=== PATIENT | female | born 1985 | race American Indian/Alaskan Native ===

== ENCOUNTER 2018-01-09 21:41 | Emergency (ER) | payer MEDICAID ==
[2018-01-09 22:05] VITALS: BP 93/67
== END 2018-01-10 03:33 | disposition left against medical advice (07) ==
LOC: ED 21:41
DX: M79.1 Myalgia (principal); Z53.21 Procedure and treatment not carried out due to patient leaving prior to being seen by health care provider

== ENCOUNTER 2019-10-20 06:54 | Inpatient (IN) | payer BC, MEDICAID ==
[2019-10-20 08:01] LABS: Bacteria,Urine 1+ /HPF (Negative); Bilirubin,Urine NEG (Negative); Blood,Urine NEG (Negative); Color,Urine Straw (Yellow); Protein,Urine <15 mg/dL mg/dL (Negative); Urobilinogen,Urine < 2.0 mg/dL (<2.0)
[2019-10-20] MEDS: BUTALB/ACETAMINOPHEN/CAFFEINE TAB PO PRN ×2 (08:38→12:26)
[2019-10-20] MEDS ORDERED: TERBUTALINE 1 MG/1 ML INJ SUB-Q PRN (10:50)
[2019-10-20] MEDS ORDERED: fentaNYL 100 MCG/2 ML INJ IV PRN (10:50)
--- NOTE | 2019-10-20 10:54 | History and Physical Report ---
History of Present Illness Date of examination: 10/20/19 Date of admission: 10/20/2019 Chief complaint: Headache, contractions History of present illness: 34 year old presents to L&D with complaint of headache since awakening this morning. Patient states she got emotionally upset last night and noticed the headache after that. Patient denies visual disturbance, nausea or vomiting, abdominal pain, swelling, or vaginal bleeding. Patient reports contractions. She denies leaking of water. Patient reports active movement. Patient received care at [facility] OB-SECURITY SYSTEMS ADMINISTRATOR. records are not available but was able to access records on computer. significant for the following: anemia (supplemented with iron), obesity, rubella nonimmune, left multicystic dysplastic kidney, mild pyelectasis/left hydronephrosis, UTI with proteus (treated). labs are as follows: AB+, antibody screen negative, pap smear negative, rubella nonimmune, RPR nonreactive, hepatitis B surface antigen negative, HIV negative, HSV 2 negative, hemoglobin electrophoresis AA, gonorrhea negative, chlamydia negative, trichomonas negative, GBS negative, 1 hour sugar test 77, AFP tetra screen negative. Past medical history significant for obesity, migraine, history of delivery, and vitamin D deficiency. Past History Past Medical History: other (obesity, migraine, vitamin D deficiency, history of PTD) Past Surgical History: no surgical history SECURITY SYSTEMS ADMINISTRATOR History: denies: abnormal PAP smear, chlamydia, gonorrhea, hepatitis B, hepatitis C, herpes, HIV, syphilis, trichomonas Family/Genetic History: diabetes, heart disease, hypertension, other (arthritis, hypercholesterolemia) Social history: lives with family, full code. denies: smoking, alcohol abuse, prescription drug abuse, IV drug use - Obstetrical History Expected Date of Delivery: 10/29/19 Actual Gestation: 38 Week(s) 5 Day(s) : 4 Para: 3 Hx # Term Pregnancies: 2 Number of Pregnancies: 1 Spontaneous Abortions: 0 Induced : 0 Number of Living Children: 3 Medications and Allergies Allergies Allergy/AdvReac Type Severity Reaction Status Date / Time No Known Allergies Allergy Unverified 01/09/18 22:04 Active Meds: Active Medications Acetaminophen/Butalbital/Caffeine (Fioricet) 1 tab PO Q4H PRN PRN Reason: Headache Last Admin: 10/20/19 08:38 Dose: 1 tab Documented by: Review of Systems All systems: negative (headache, contractions) - Vital Signs Vital signs: Vital Signs Temp Pulse Resp BP Pulse Ox 98.3 F 114 H 16 119/82 97 10/20/19 07:40 10/20/19 07:40 10/20/19 07:40 10/20/19 07:40 10/20/19 07:40 Temp Pulse Resp BP Pulse Ox 98.3 F 112 H 16 119/82 97 10/20/19 07:40 10/20/19 09:46 10/20/19 07:40 10/20/19 07:40 10/20/19 09:46 - Physical Exam Abdomen: Positive: normal appearance, soft. Negative: distention, tenderness, guarding, rigidity Genitourinary (Female): Positive: normal external genitalia, normal perenium. Negative: perineal/vulvar lesions (no lesions seen on careful exam with bright light upon admission) Vagina: Positive: normal moisture Uterus: Positive: enlarged (S=D). Negative: tender Anus/Rectum: Positive: normal perianal skin Extremities: Positive: other (brisk reflexes bilaterally, + clonus). Negative: tenderness, edema - Obstetrical FHR: category 2 (Occasional nonrepetitive variable FHR deceleration; moderate va riability) Uterine Contraction Monitor Mode: External Cervical Dilatation: 5 Cervical Effacement Percentage: 70 station: -3 Uterine Contraction Pattern: Irregular Uterine Contraction Intensity: Mild Results Result Diagrams: 10/20/19 11:56 All other labs normal. Assessment and Plan A: at 38 weeks, 5 days gestation. Preeclampsia with severe features. Obesity. left multicystic dysplastic kidney. Labor. GBS negative. P: Admit. Serial BPs. Preeclamptic labs. Continuous EFM. Magesium Sulfate for seizure prevention. Hydralazine for elevated blood pressure. Pitocin augmentation of labor. Discussed with patient plan of care, risks and benefits of Pitocin augmentation of labor. Patient states she is in agreement with POC. Patient consented to Pitocin augmentation of labor. Consulted with Dr. Zeng re: patient and severe preeclampsia and interventions taken, including magnesium sulfate. No new orders received. Spoke with NICU re: multicystic dysplastic kidney.
[2019-10-20] MEDS ORDERED: LIDOCAINE (2%) 20 MG/1 ML VIAL 20 ML MDV INFILTRATI ONE (11:00)
[2019-10-20] MEDS ORDERED: OXYTOCIN 20 UNIT/1000ML DRIP 20 UNITS/1,000 ML BAG IV SCH (11:00)
[2019-10-20] MEDS ORDERED: OXYTOCIN DRIP 30 UNITS/500 ML BAG IV SCH (11:00)
[2019-10-20 12:14] LABS: Hematocrit 34.6 % (30.3-42.9); Hemoglobin 11.9 gm/dl (10.1-14.3); Mean Corpuscular HGB Conc 34 % (30-34); Mean Corpuscular Volume 93 fl (79-97); Platelet Count 149 K/mm3 (140-440); Red Blood Count 3.74 M/mm3 (3.65-5.03); Red Cell Distribution Width 13.9 % (13.2-15.2)
[2019-10-20] MEDS: LACTATED RINGERS 1,000 ML IV SCH ×2 (12:27→20:30)
[2019-10-20] MEDS ORDERED: MAGNESIUM SULFATE 4 GM/100 ML BAG IV ONE (13:48)
[2019-10-20] MEDS ORDERED: hydrALAZINE 20 MG/1 ML INJ IV PRN (13:48)
[2019-10-20] MEDS ORDERED: MAGNESIUM SULFATE 40GM/1000ML 40 GM/1,000 ML BAG IV SCH ×2 (14:00→21:30)
[2019-10-20] MEDS ORDERED: DEXMEDETOMIDINE 200 MCG/2 ML VIAL IV ONE (14:12)
[2019-10-20] MEDS ORDERED: NALOXONE 2 MG/2 ML INJ IV PRN (14:22)
[2019-10-20] MEDS ORDERED: ePHEDrine SULFATE 50 MG/1 ML INJ IV PRN (14:22)
--- NOTE | 2019-10-20 14:24 | Anesthesia Consultation ---
Anesthesia Consult and Med Hx Date of service: 10/20/19 - Airway Anesthetic Teeth Evaluation: Good ROM Head & Neck: Adequate Mental/Hyoid Distance: Adequate Mallampati Class: Class III Intubation Access Assessment: Probably Good - Pulmonary Exam CTA: Yes - Cardiac Exam Cardiac Exam: RRR - Pre-Operative Health Status ASA Pre-Surgery Classification: ASA3 Proposed Anesthetic Plan: Epidural - Pulmonary Hx Smoking: No Hx Asthma: No Hx Respiratory Symptoms: No SOB: No COPD: No Home Oxygen Therapy: No Hx Pneumonia: No Hx Sleep Apnea: No - Cardiovascular System Hx Hypertension: Yes Hx Coronary Artery Disease: No Hx Heart Attack/AMI: No Hx Angina: No Hx Percutaneous Transluminal Coronary Angioplasty (PTCA): No Hx Cardia Arrhythmia: No Hx Pacemaker: No Hx Internal Defibrillator: No Hx Valvular Heart Disease: No Hx Heart Murmur: No Hx Peripheral Vascular Disease: No - Central Nervous System Hx Neuromuscular Disorder: No Hx Seizures: No CVA: No Hx Back Pain: Yes Hx Psychiatric Problems: No - Gastrointestinal Hx Ulcer: No Hx Gastroesophageal Reflux Disease: Yes - Endocrine Hx Renal Disease: No Hx End Stage Renal Disease: No Hx Cirrhosis: No Hx Liver Disease: No Hx Insulin Dependent Diabetes: No Hx Non-Insulin Dependent Diabetes: No Hx Thyroid Disease: No Hx Hypothyroidism: No Hx Hyperthyroidism: No - Hematic Hx Anemia: Yes Hx Sickle Cell Disease: No - Other Systems Hx Alcohol Use: No Hx Substance Use: No Hx Cancer: No Hx Obesity: Yes
[2019-10-20] MEDS: ePHEDrine SULFATE 50 MG/1 ML INJ IV PRN ×3 (14:57→15:04)
[2019-10-20] MEDS ORDERED: fentaNYL-BUPIV 2 MCG/ML-0.125% 200 MCG/100 ML BAG EPIDURAL SCH (15:00)
[2019-10-20 15:14] LABS: Alanine Aminotransferase 12 units/L (7-56); Albumin 3.8 g/dL (3.9-5); BUN/Creatinine Ratio 14; Blood Urea Nitrogen 10 mg/dL (7-17); Calcium 9.2 mg/dL (8.4-10.2); Hemolysis Index 8; Uric Acid 7.1 mg/dL (3.5-7.6)
--- NOTE | 2019-10-20 15:31 | Progress Note ---
Labor Epidural - Labor Epidural Start Time: 14:31 Stop Time: 14:46 Performed by:: KRISTEN JUAN Procedure: Labor Epidural Patient is requesting a laboring epidural for laboring pain. Patient IDed, H&P reviewed, all questions and concerns were answered, and consent was signed. Timeout was performed at bedside. Patient in sitting position. Sterile prep and drape was performed. [3] ml of 1% lidocaine skin wheal at L[3]- L [4]. 18-gauge Touhy epidural needle was advanced to loss of resistance with air technique 8cm. Negative CSF negative blood. Epidural catheter advanced to [12] centimeters. [negative] Aspiration [negative] test dose. Sterile dressing applied. Patient tolerated procedure.
--- NOTE | 2019-10-20 16:48 | Event Note ---
Date: 10/20/19 Patient received an epidural and had hypotension following epidural. Patient has received several doses of ephedrine and an IV fluid bolus. MUSIC VIDEO DIRECTOR has assessed the patient and is in room again to assess the patient. RN has been notified to call director of golf. Patient reports feeling sleepy and very relaxed. Patient talking and answering questions appropriately. No maternal tachycardia noted. FHR 130 with moderate variability and intermittent variable and late FHR decelerations. Patient has oxygen per face mask at 10 LPM. SVE unchanged. Contractions are every 3-6 minutes, moderate to palpation. Uterus palpates soft between contractions. Called Dr. Zeng at 16:40 and informed him of patient's vital signs and interventions taken and LOC change. Asked Dr. Zeng to come evaluate patient. Pitocin and magnesium sulfate have been turned off. Stat labs and US have been ordered. Stat mag level ordered.
--- NOTE | 2019-10-20 17:37 | Event Note ---
Date: 10/20/19 Dr. Zeng now in house. Dr. Zeng requests that patient have AROM to augment labor. Discussed with patient and she agrees to AROM. AROM with FSE. Cervix 5.5/70/-2.
--- NOTE | 2019-10-20 18:31 | Progress Note ---
Subjective Date of service: 10/20/19 Interval history: Called to see patient for hyoptension and change in LOC. On exam patient was laying on her Right side, A&Ox3, B/P 81/45, HR 97, SPO2 96%. Ordered Epidural drip turned off. Dermatome level T11. She denies ringing in the ears, metalliac taste, lightheadedness, dizziness, visual and auditory disturbances or drowsiness. Epidural site was intact. While in the room B/P's fluctuated from 49/26-116/72 however her LOC was unchanged. She was treated with IV fluid bolus and continues monitoring of B/P'S and pain assessments. Will restart Epidural drip once B/P is stable. Objective - Constitutional Vitals: Vital Signs - 12hr 10/20/19 10/20/19 10/20/19 07:40 07:45 07:46 Temperature 98.3 F Pulse Rate 114 H 112 H 109 H Respiratory 16 Rate Blood Pressure 119/82 O2 Sat by Pulse 97 94 94 Oximetry 10/20/19 10/20/19 10/20/19 07:50 07:55 07:56 Temperature Pulse Rate 116 H 108 H 106 H Respiratory Rate Blood Pressure O2 Sat by Pulse 97 96 92 Oximetry 10/20/19 10/20/19 10/20/19 08:00 08:02 08:05 Temperature Pulse Rate 112 H 100 H 108 H Respiratory Rate Blood Pressure O2 Sat by Pulse 90 91 97 Oximetry 10/20/19 10/20/19 10/20/19 08:08 08:10 08:14 Temperature Pulse Rate 110 H 107 H 109 H Respiratory Rate Blood Pressure O2 Sat by Pulse 93 95 94 Oximetry 10/20/19 10/20/19 10/20/19 08:15 08:20 08:21 Temperature Pulse Rate 106 H 105 H 103 H Respiratory Rate Blood Pressure O2 Sat by Pulse 94 96 93 Oximetry 10/20/19 10/20/19 10/20/19 08:25 08:28 08:37 Temperature Pulse Rate 114 H 114 H 114 H Respiratory Rate Blood Pressure O2 Sat by Pulse 97 92 95 Oximetry 10/20/19 10/20/19 10/20/19 08:40 08:42 08:45 Temperature Pulse Rate 106 H 104 H 102 H Respiratory Rate Blood Pressure O2 Sat by Pulse 91 95 92 Oximetry 10/20/19 10/20/19 10/20/19 08:47 08:52 08:56 Temperature Pulse Rate 95 H 98 H 107 H Respiratory Rate Blood Pressure O2 Sat by Pulse 93 96 93 Oximetry 10/20/19 10/20/19 10/20/19 08:57 09:01 09:02 Temperature Pulse Rate 95 H 98 H 102 H Respiratory Rate Blood Pressure O2 Sat by Pulse 97 93 95 Oximetry 10/20/19 10/20/19 10/20/19 09:07 09:12 09:17 Temperature Pulse Rate 100 H 83 107 H Respiratory Rate Blood Pressure O2 Sat by Pulse 94 97 96 Oximetry 10/20/19 10/20/19 10/20/19 09:18 09:22 09:36 Temperature Pulse Rate 103 H 118 H 68 Respiratory Rate Blood Pressure O2 Sat by Pulse 94 97 93 Oximetry 10/20/19 10/20/19 10/20/19 09:41 09:46 12:51 Temperature Pulse Rate 117 H 112 H 123 H Respiratory Rate Blood Pressure 174/112 O2 Sat by Pulse 99 97 Oximetry 10/20/19 10/20/19 10/20/19 13:00 13:58 14:09 Temperature Pulse Rate 113 H 129 H 107 H Respiratory Rate Blood Pressure 137/92 196/114 O2 Sat by Pulse 97 Oximetry 10/20/19 10/20/19 10/20/19 14:14 14:16 14:19 Temperature Pulse Rate 119 H 110 H 111 H Respiratory Rate Blood Pressure 115/72 O2 Sat by Pulse 97 94 97 Oximetry 10/20/19 10/20/19 10/20/19 14:20 14:25 14:30 Temperature 98.1 F Pulse Rate 115 H 119 H Respiratory Rate Blood Pressure 128/68 O2 Sat by Pulse 96 99 Oximetry 10/20/19 10/20/19 10/20/19 14:33 14:35 14:37 Temperature Pulse Rate 127 H 122 H 105 H Respiratory Rate Blood Pressure 103/70 105/71 96/68 O2 Sat by Pulse 100 Oximetry 10/20/19 10/20/19 10/20/19 14:39 14:40 14:41 Temperature Pulse Rate 127 H 115 H 115 H Respiratory Rate Blood Pressure 122/77 115/60 O2 Sat by Pulse 84 Oximetry 10/20/19 10/20/19 10/20/19 14:43 14:45 14:47 Temperature Pulse Rate 120 H 91 H 115 H Respiratory Rate Blood Pressure 103/58 95/56 78/44 O2 Sat by Pulse 98 Oximetry 10/20/19 10/20/19 10/20/19 14:49 14:50 14:51 Temperature Pulse Rate 111 H 113 H 113 H Respiratory Rate Blood Pressure 100/59 89/51 O2 Sat by Pulse 99 Oximetry 10/20/19 10/20/19 10/20/19 14:53 14:55 14:56 Temperature Pulse Rate 151 H 98 H 99 H Respiratory Rate Blood Pressure 102/58 73/40 O2 Sat by Pulse 98 93 Oximetry 10/20/19 10/20/19 10/20/19 14:57 14:59 15:00 Temperature Pulse Rate 99 H 96 H 94 H Respiratory Rate Blood Pressure 79/43 73/41 O2 Sat by Pulse 97 Oximetry 10/20/19 10/20/19 10/20/19 15:01 15:02 15:03 Temperature Pulse Rate 95 H 94 H 94 H Respiratory Rate Blood Pressure 61/39 62/36 O2 Sat by Pulse 93 Oximetry 10/20/19 10/20/19 10/20/19 15:05 15:06 15:07 Temperature Pulse Rate 97 H 96 H 91 H Respiratory Rate Blood Pressure 64/34 65/39 71/37 O2 Sat by Pulse 100 Oximetry 10/20/19 10/20/19 10/20/19 15:09 15:10 15:11 Temperature Pulse Rate 88 94 H 95 H Respiratory Rate Blood Pressure 65/35 68/39 O2 Sat by Pulse 99 Oximetry 10/20/19 10/20/19 10/20/19 15:13 15:15 15:17 Temperature Pulse Rate 92 H 99 H 100 H Respiratory Rate Blood Pressure 67/39 63/36 68/39 O2 Sat by Pulse 99 Oximetry 10/20/19 10/20/19 10/20/19 15:19 15:20 15:21 Temperature Pulse Rate 103 H 99 H 97 H Respiratory Rate Blood Pressure 69/40 73/41 O2 Sat by Pulse 99 Oximetry 10/20/19 10/20/19 10/20/19 15:23 15:25 15:27 Temperature Pulse Rate 95 H 95 H 93 H Respiratory Rate Blood Pressure 77/42 78/42 64/45 O2 Sat by Pulse 99 Oximetry 10/20/19 10/20/1910/19/20 15:29 15:30 15:31 Temperature Pulse Rate 95 H 91 H 89 Respiratory Rate Blood Pressure 84/49 68/36 O2 Sat by Pulse 99 Oximetry 10/20/19 10/20/19 10/20/19 15:33 15:35 15:37 Temperature Pulse Rate 93 H 89 92 H Respiratory Rate Blood Pressure 82/48 72/40 87/49 O2 Sat by Pulse 99 Oximetry 10/20/19 10/20/19 10/20/19 15:39 15:40 15:41 Temperature Pulse Rate 90 90 90 Respiratory Rate Blood Pressure 65/37 60/34 O2 Sat by Pulse 99 Oximetry 10/20/19 10/20/19 10/20/19 15:43 15:45 15:50 Temperature Pulse Rate 91 H 89 89 Respiratory Rate Blood Pressure 89/51 87/53 O2 Sat by Pulse 99 99 Oximetry 10/20/19 10/20/19 10/20/19 15:51 15:55 16:00 Temperature Pulse Rate 88 89 89 Respiratory Rate Blood Pressure 80/42 83/49 O2 Sat by Pulse 100 99 Oximetry 10/20/19 10/20/19 10/20/19 16:02 16:05 16:06 Temperature Pulse Rate 92 H 87 88 Respiratory Rate Blood Pressure 92/49 80/42 O2 Sat by Pulse 99 Oximetry 10/20/19 10/20/19 10/20/19 16:10 16:12 16:14 Temperature Pulse Rate 87 92 H 88 Respiratory Rate Blood Pressure 80/43 78/41 O2 Sat by Pulse 96 93 Oximetry 10/20/19 10/20/19 10/20/19 16:15 16:16 16:19 Temperature Pulse Rate 86 85 83 Respiratory Rate Blood Pressure 68/34 64/26 O2 Sat by Pulse 90 94 Oximetry 10/20/19 10/20/19 10/20/19 16:20 16:21 16:25 Temperature Pulse Rate 86 84 82 Respiratory Rate Blood Pressure 81/42 O2 Sat by Pulse 92 93 Oximetry 10/20/19 10/20/19 10/20/19 16:26 16:30 16:31 Temperature Pulse Rate 81 78 81 Respiratory Rate Blood Pressure 67/34 73/39 O2 Sat by Pulse 94 Oximetry 10/20/19 10/20/19 10/20/19 16:35 16:38 16:40 Temperature Pulse Rate 85 82 80 Respiratory Rate Blood Pressure 70/35 O2 Sat by Pulse 94 90 Oximetry 10/20/19 10/20/19 10/20/19 16:41 16:45 16:47 Temperature Pulse Rate 80 91 H 87 Respiratory Rate Blood Pressure 60/27 68/35 O2 Sat by Pulse 94 Oximetry 10/20/19 10/20/19 10/20/19 16:50 16:51 16:53 Temperature Pulse Rate 83 84 86 Respiratory Rate Blood Pressure 49/26 81/45 O2 Sat by Pulse 95 92 Oximetry 10/20/19 10/20/19 10/20/19 16:55 16:57 17:00 Temperature Pulse Rate 95 H 97 H 96 H Respiratory Rate Blood Pressure 98/57 O2 Sat by Pulse 95 96 Oximetry 10/20/19 10/20/19 10/20/19 17:01 17:05 17:06 Temperature Pulse Rate 96 H 88 89 Respiratory Rate Blood Pressure 89/53 O2 Sat by Pulse 96 94 Oximetry 10/20/19 10/20/19 10/20/19 17:08 17:10 17:11 Temperature Pulse Rate 90 90 90 Respiratory Rate Blood Pressure 73/38 56/26 O2 Sat by Pulse 95 Oximetry 10/20/19 10/20/19 10/20/19 17:12 17:15 17:16 Temperature Pulse Rate 91 H 98 H 97 H Respiratory Rate Blood Pressure 95/52 O2 Sat by Pulse 94 96 Oximetry 10/20/19 10/20/19 10/20/19 17:17 17:20 17:26 Temperature Pulse Rate 91 H 90 89 Respiratory Rate Blood Pressure 87/48 83/47 82/47 O2 Sat by Pulse 96 96 Oximetry 10/20/19 10/20/19 10/20/19 17:30 17:31 17:36 Temperature Pulse Rate 88 93 H 99 H Respiratory Rate Blood Pressure 65/35 116/71 O2 Sat by Pulse 94 97 99 Oximetry 10/20/19 10/20/19 10/20/19 17:41 17:46 17:48 Temperature Pulse Rate 94 H 98 H 92 H Respiratory Rate Blood Pressure 105/54 111/57 O2 Sat by Pulse 100 98 Oximetry - Labs CBC & Chem 7: 10/20/19 11:56 10/20/19 14:53 Labs: Abnormal lab results 10/20/19 Range/Units 14:53 Sodium 135 L (137-145) mmol/L Chloride 96.4 L (98-107) mmol/L Alkaline Phosphatase 143 H (35-129) units/L Lactate Dehydrogenase 202 H (91-180) units/L Albumin 3.8 L (3.9-5) g/dL
--- NOTE | 2019-10-20 19:48 | Ultrasound Report ---
ULTRASOUND OBSTETRIC INDICATION / CLINICAL INFORMATION: Check placenta. Clinical Gestational Age (GA): 38 weeks 5 days TECHNIQUE: Transabdominal. COMPARISON: None available. FINDINGS: There is a single intrauterine . Heart rate 130 bpm. DAVID 11.6 cm. Placenta is unremarkable s onographically, without evidence of placental separation. Signer Name: Jason Jameson MD Signed: 10/20/2019 7:44 PM Workstation Name: [id number]
--- NOTE | 2019-10-20 21:00 | Event Note ---
Date: 10/20/19 Restarted magnesium sulfate.
--- NOTE | 2019-10-20 22:40 | Event Note ---
Date: 10/20/19 Patient reached complete cervical dilation at 21:05. Patient pushed for approximately 38 minutes with little descent. Vertex at 0 to +1 station. Pitocin turned off at 21:35. Patient stopped pushing to labor down at 21:43. Informed Dr. Zeng at 21:49 that there had been little descent and patient was very numb from epidural and we were laboring down. While resting/laboring down, several deep variable FHR decelerations noted. Patient positioned in left lateral, then right lateral position. Oxygen applied per face mask at 10 LPM. At 22:[address] Zneg and asked him to come to patient's labor room to expedite delivery due to deep variable FHR decelerations.
[2019-10-21] MEDS ORDERED: ONDANSETRON 4 MG/2 ML INJ IV PRN (00:07)
[2019-10-21] MEDS ORDERED: LANOLIN/ZINC/DIMETHICONE (LANSINOH) 7 GM TP PRN (00:07)
[2019-10-21] MEDS ORDERED: WITCH HAZEL/ GLYCERIN PAD TP PRN (00:07)
[2019-10-21] MEDS ORDERED: MAGNESIUM HYDROXIDE (MOM) ORAL LIQD UDC PO PRN (00:07)
--- NOTE | 2019-10-21 00:18 | Procedure Note ---
OB Delivery Note - Delivery Date of Delivery: 10/20/19 Surgeon: JOANN HAILE Estimated blood loss: 200cc - Vaginal Delivery presentation: vertex Delivery position: OA Delivery induction: none Delivery augmentation: rupture of membranes, pitocin Delivery monitor: external FHT, external uterine Route of delivery: Delivery placenta: spontaneous Delivery cord: 3 umbilical vessels Episiotomy: none Delivery laceration: none Anesthesia: epidural Delivery comments: Spontaneous vaginal delivery at 23:44 of liveborn male infant weighing 2.549 kg over intact perineum with agpars of 8/9. Double nuchal cord manually reduced. Baby placed skin to skin with mom immediately after . Spontaneous cry and respirations. Baby bulb suctioned and dried with warm towels. 3 vessel cord double clamped and cut. Baby taken to radiant warmer for further suctioning. Spontaneous delivery of intact placenta and membranes by wheeler mechanism. EBL 200 cc. Pitocin to IV fluids after delivery of placenta. Fundus firm and midline. No lacerations noted. Vaginal sweep negative. Sponge count correct. Mother and baby stable in birthing room.
[2019-10-21] MEDS: HYDROcodone/ACETAMINOPHEN 5-325 MG TAB PO PRN ×3 (01:26→18:02)
--- NOTE | 2019-10-21 03:53 | Post Anesthesia Evaluation ---
- Post Anesthesia Evaluation Patient Participated: Yes Airway Patent: Yes Stable Respiratory Function: Yes Nausea/Vomiting: No Temp > 96.8F: Yes Pain Manageable: Yes Adequeate Hydration: Yes Anesthesia Complications: No Block Receding Appropriately: Yes Patient on Ventilator: No
[2019-10-21 06:00] LABS: Basophils % (Auto) 0.4 % (0.0-1.8); Eosinophils # (Auto) 0.1 K/mm3 (0.0-0.4); Eosinophils % (Auto) 0.5 % (0.0-4.3); Hematocrit 34.6 % (30.3-42.9); Hemoglobin 11.6 gm/dl (10.1-14.3); Lymphocytes % (Auto) 7.9 % (13.4-35.0); Mean Corpuscular HGB Conc 34 % (30-34); Mean Corpuscular Volume 94 fl (79-97); Monocytes # (Auto) 0.7 K/mm3 (0.0-0.8); Monocytes % (Auto) 5.8 % (0.0-7.3); Platelet Count 151 K/mm3 (140-440)
[2019-10-21] MEDS: IBUPROFEN 600 MG TAB PO PRN ×2 (06:05→21:39)
--- NOTE | 2019-10-21 11:47 | Progress Note ---
Assessment and Plan - Patient Problems (1) Status post normal vaginal delivery Current Visit: Yes Status: Acute Plan to address problem: PPD 1 - on magnesium sulfate therapy for pre-eclampsia Continue routine orders Anticipate discharge in 24 hours (2) Single live Current Visit: Yes Status: Acute (3) Pre-eclampsia Current Visit: Yes Status: Acute Qualifiers: Trimester: third trimester Qualified Code(s): O14.93 - Unspecified pre-eclampsia, third trimester Plan to address problem: Asymptomatic BPs stable - no antihypertensive at this time Continue magnesium sulfate therapy per protocol Discontinue magnesium sulfate after 24 hours and transfer pt to Subjective - Subjective Date of service: 10/21/19 Principal diagnosis: PPD #1, s/p Interval history: see [employer] - H&P, Event Notes and OB Delivery Procedure Note Patient reports: appetite normal, pain well controlled, other (osborne catheter in place. Denies headache, visual disturbances or RUQ pain) : doing well Objective - Vital Signs Latest vital signs: Vital Signs Temp Pulse Resp BP Pulse Ox 10/21/19 11:40 102 H 96 10/21/19 11:35 104 H 97 10/21/19 11:32 103 H 93 10/21/19 11:30 106 H 97 10/21/19 11:25 106 H 97 10/21/19 11:20 105 H 97 10/21/19 11:15 104 H 116/55 97 10/21/19 11:10 103 H 97 10/21/19 11:05 107 H 97 10/21/19 11:00 105 H 98 10/21/19 10:55 105 H 96 10/21/19 10:52 103 H 94 10/21/19 10:50 82 96 10/21/19 10:45 103 H 97 10/21/19 10:40 102 H 97 10/21/19 10:37 104 H 94 10/21/19 10:35 101 H 96 10/21/19 10:30 106 H 97 10/21/19 10:25 98 H 98 10/21/19 10:20 101 H 97 10/21/19 10:15 105 H 119/75 98 10/21/19 10:10 109 H 97 10/21/19 10:05 106 H 96 10/21/19 10:00 105 H 97 10/21/19 09:55 109 H 97 05/25/20 09:50 104 H 95 05/25/20 09:45 108 H 96 05/25/20 09:41 108 H 94 05/25/20 09:40 111 H 95 05/25/20 09:36 110 H 94 05/25/20 09:35 107 H 95 05/25/20 09:30 105 H 83 L 0520 09:29 90 0520 09:24 106 H 86 0520 09:19 109 H 85 0520 09:18 25 L 0520 09:15 114 H 118/74 05/25/20 09:14 113 H 84 0520 09:13 58 L 05 09:08 114 H 90 05 09:07 113 H 95 05 09:03 110 H 94 05 09:02 114 H 95 05/25/20 08:57 108 H 96 0520 08:53 111 H 94 052520 08:52 101 H 96 0520 08:48 106 H 94 0525/20 08:47 103 H 95 05/25/20 08:42 105 H 95 05/25/20 08:40 101 H 94 05/25/20 08:37 100 H 95 05/25/20 08:32 103 H 96 05/25/20 08:27 103 H 98 05/25/20 08:22 112 H 98 05/25/20 08:17 99 H 99 05/25/20 08:15 106 H 115/58 05/25/20 08:12 102 H 98 05/25/20 08:07 102 H 98 05/25/20 08:02 106 H 97 05/25/20 07:57 102 H 99 05/25/20 07:52 106 H 98 05/25/20 07:47 97 H 100 05/25/20 07:42 114 H 98 05/25/20 07:37 105 H 99 05/25/20 07:32 98 H 99 05/25/20 07:28 109 H 91 05/25/20 07:27 85 100 05/25/20 07:22 105 H 100 05/25/20 07:17 105 H 99 05/25/20 07:15 106 H 121/81 05/25/20 07:12 108 H 99 05/25/20 07:07 104 H 98 05/25/20 07:02 111 H 97 05/25/20 06:57 118 H 100 0520 06:52 104 H 97 05/20 06:47 102 H 98 0525/20 06:42 106 H 98 0525/20 06:37 100 H 98 0525/20 06:32 103 H 99 05/20 06:27 104 H 98 0520 06:22 102 H 97 0520 06:17 102 H 97 0520 06:15 102 H 109/74 05/25/20 06:12 96 H 99 05 06:07 108 H 96 05 06:03 104 H 94 05 06:02 102 H 95 0520 05:57 107 H 96 05/20 05:55 111 H 94 05/20 05:52 107 H 93 0520 05:49 107 H 94 0520 05:47 105 H 96 0525/20 05:42 111 H 96 05/20 05:37 106 H 95 05/25/20 05:36 109 H 94 05/25/20 05:32 104 H 97 05/20 05:27 102 H 94 05/25/20 05:22 100 H 96 05/20 05:20 110 H 94 05/25/20 05:17 96 H 96 05/25/20 05:16 97 H 93/57 0525/20 05:15 99 H 83/46 05/25/20 05:12 98 H 98 05/20 05:07 99 H 97 0525/20 05:02 98 H 97 05/25/20 04:57 101 H 96 05/25/20 04:52 106 H 96 05/25/20 04:47 110 H 97 05/25/20 04:42 107 H 97 05/25/20 04:37 107 H 98 05/25/20 04:32 107 H 94 05/25/20 04:29 114 H 80 L 05/25/20 04:27 114 H 96 05/25/20 04:23 115 H 91 05/25/20 04:22 112 H 96 05/25/20 04:17 112 H 95 05/25/20 04:15 112 H 114/66 05/25/20 04:12 105 H 94 05/25/20 04:11 109 H 94 05/25/20 04:07 105 H 94 05/25/20 04:04 109 H 94 05/25/20 04:02 104 H 95 05/25/20 03:58 106 H 94 05/25/20 03:57 105 H 94 05/25/20 03:52 95 H 94 05/25/20 03:51 105 H 94 05/25/20 03:47 109 H 95 05/25/20 03:46 107 H 94 05/25/20 03:42 110 H 95 05/25/20 03:37 109 H 96 05/25/20 03:36 106 H 94 05/25/20 03:32 109 H 93 05/25/20 03:29 112 H 94 05/25/20 03:27 108 H 93 05/25/20 03:22 110 H 93 05/25/20 03:19 109 H 94 05/25/20 03:17 113 H 91 05/25/20 03:15 105 H 113/68 05/25/20 03:12 108 H 95 05/25/20 03:11 111 H 94 05/25/20 03:07 107 H 95 05/25/20 03:05 110 H 94 05/25/20 03:02 109 H 93 05/25/20 02:59 108 H 94 05/25/20 02:57 108 H 94 05/25/20 02:53 107 H 93 05/25/20 02:52 109 H 93 05/25/20 02:47 104 H 93 05/25/20 02:42 108 H 95 05/25/20 02:39 109 H 94 05/25/20 02:37 109 H 95 05/25/20 02:32 107 H 95 05/25/20 02:29 99 H 93 05/25/20 02:27 111 H 96 05/25/20 02:24 103 H 94 05/25/20 02:22 106 H 94 05/25/20 02:17 108 H 95 05/25/20 02:15 113 H 90/58 05/25/20 02:12 106 H 95 05/25/20 02:08 108 H 93 05/25/20 02:07 111 H 95 05 02:02 111 H 97 05 01:57 110 H 97 05 01:52 114 H 97 05 01:47 113 H 98 05 01:42 113 H 99 05 01:37 117 H 99 05 01:32 112 H 99 05 01:27 112 H 100 05 01:22 113 H 98 10/21/19 01:17 114 H 98 05 01:12 114 H 100 05 01:11 113 H 108/66 05 01:07 101 H 98 10/21/19 01:02 104 H 98 10/21/19 01:00 98.6 F 20 10/21/19 00:57 111 H 97 10/21/19 00:56 109 H 119/66 05 00:54 116 H 90 10/21/19 00:52 108 H 98 10/21/19 00:48 109 H 90 05 00:47 105 H 97 10/21/19 00:42 114 H 118/66 96 05 00:40 114 H 92 05 00:37 113 H 98 10/21/19 00:34 114 H 94 05 00:32 116 H 97 05 00:27 117 H 99 10/21/19 00:26 116 H 138/88 05 00:22 113 H 98 05 00:17 118 H 97 10/21/19 00:12 115 H 98 05 00:11 118 H 139/87 05 00:07 113 H 97 05 00:05 118 H 94 05 00:02 119 H 97 05 23:57 120 H 141/80 98 0520 23:52 127 H 96 05/20 23:47 127 H 98 05/2420 23:46 131 H 135/60 05/2420 23:45 130 H 92 052420 23:42 134 H 98 052420 23:37 134 H 100 0520 23:32 135 H 96 05/20 23:31 141 H 126/66 05/24/20 23:27 138 H 98 05/2420 23:22 141 H 98 05/2420 23:19 118 H 118/73 05/2420 23:17 136 H 98 0520 23:13 133 H 94 052420 23:12 140 H 99 05/2420 23:07 119 H 100 05/2420 23:02 124 H 116/61 100 052420 22:57 120 H 100 05/24/20 22:52 118 H 100 05/2420 22:47 119 H 95/52 100 05/24/20 22:42 114 H 100 05/2420 22:37 113 H 100 052420 22:32 102 H 100 052420 22:27 110 H 100 052420 22:22 112 H 100 05/2420 22:03 113 H 104/50 052420 21:31 136 H 130/67 052420 21:30 98.1 F 20 0520 21:17 51 L 85 0520 21:12 139 H 100 05/2420 21:07 135 H 100 052420 21:02 133 H 120/77 98 052420 20:57 134 H 100 05/24/20 20:52 131 H 100 05/24/20 20:51 131 H 94 05/24/20 20:47 127 H 111/59 100 05/24/20 20:42 129 H 100 05/24/20 20:37 120 H 99 05/24/20 20:32 128 H 100/54 99 05/24/20 20:27 125 H 99 05/24/20 20:22 122 H 100 05/24/20 20:17 119 H 97 05/24/20 20:16 121 H 114/65 05/24/20 20:12 120 H 100 05/24/20 20:07 122 H 100 052420 20:02 123 H 117/81 100 05/24/20 19:57 111 H 100 05/24/20 19:52 102 H 100 05/24/20 19:47 112 H 100 05/24/20 19:46 108 H 98/53 05/24/20 19:42 112 H 97 05/24/20 19:41 113 H 96/55 05/24/20 19:37 110 H 97 05/24/20 19:32 111 H 99 05/24/20 19:30 99.2 F 20 0520 19:27 110 H 126/79 100 05/24/20 19:22 122 H 164/72 99 05/24/20 19:17 119 H 100 052420 19:12 114 H 100 052420 19:11 112 H 134/73 052420 19:07 114 H 99 052420 19:03 109 H 89 052420 19:02 107 H 65/41 100 05/24/20 18:57 112 H 99 052420 18:52 111 H 97 052420 18:51 114 H 141/78 052420 18:47 89 133/67 99 05/2420 18:42 110 H 151/84 99 052420 18:37 110 H 102/65 100 05/2420 18:32 104 H 99/61 100 05/24/20 18:31 103 H 96/61 05/24/20 18:27 102 H 99 05/24/20 18:25 101 H 112/73 05/24/20 18:23 97 H 104/63 05/24/20 18:22 100 H 96 05/24/20 18:21 96 H 65/33 05/24/20 18:19 99 H 93 05/24/20 18:17 98 H 99 05/24/20 18:16 94 H 90/53 05/24/20 18:12 95 H 93/53 98 05/24/20 18:07 95 H 82/50 99 05/24/20 18:02 94 H 96 05/24/20 18:01 93 H 65/35 05/24/20 17:57 93 H 95/56 96 05/24/20 17:51 96 H 102/55 99 05/24/20 17:48 92 H 111/57 05/24/20 17:46 98 H 98 05/24/20 17:41 94 H 105/54 100 05/24/20 17:36 99 H 116/71 99 05/24/20 17:31 93 H 65/35 97 05/24/20 17:30 88 94 05/24/20 17:26 89 82/47 96 05/24/20 17:20 90 83/47 96 05/24/20 17:17 91 H 87/48 05/24/20 17:16 97 H 95/52 05/24/20 17:15 98 H 96 05/24/20 17:12 91 H 94 05/24/20 17:11 90 56/26 05/24/20 17:10 90 95 05/24/20 17:08 90 73/38 05/24/20 17:06 89 94 05/24/20 17:05 88 96 05/24/20 17:01 96 H 89/53 05/24/20 17:00 96 H 96 05/24/20 16:57 97 H 98/57 05/24/20 16:55 95 H 95 05/24/20 16:53 86 81/45 05/24/20 16:51 84 92 05/24/20 16:50 83 49/26 95 05/24/20 16:47 87 68/35 05/24/20 16:45 91 H 94 05/24/20 16:41 80 60/27 05/24/20 16:40 80 90 05/24/20 16:38 82 70/35 05/24/20 16:35 85 94 05/24/20 16:31 81 73/39 05/24/20 16:30 78 94 05/24/20 16:26 81 67/34 05/24/20 16:25 82 93 05/24/20 16:21 84 81/42 05/24/20 16:20 86 92 05/24/20 16:19 83 64/26 94 05/24/20 16:16 85 68/34 05/24/20 16:15 86 90 05/24/20 16:14 88 78/41 05/24/20 16:12 92 H 93 05/24/20 16:10 87 80/43 96 05/24/20 16:06 88 80/42 05/24/20 16:05 87 99 05/24/20 16:02 92 H 92/49 05/24/20 16:00 89 99 05/24/20 15:55 89 83/49 100 05/24/20 15:51 88 80/42 05/24/20 15:50 89 99 05/24/20 15:45 89 87/53 99 05/24/20 15:43 91 H 89/51 05/24/20 15:41 90 60/34 05/24/20 15:40 90 99 05/24/20 15:39 90 65/37 05/24/20 15:37 92 H 87/49 05/24/20 15:35 89 72/40 99 05/24/20 15:33 93 H 82/48 05/24/20 15:31 89 68/36 05/24/20 15:30 91 H 99 05/24/20 15:29 95 H 84/49 05/24/20 15:27 93 H 64/45 05/24/20 15:25 95 H 78/42 99 05/24/20 15:23 95 H 77/42 05/24/20 15:21 97 H 73/41 05/24/20 15:20 99 H 99 05/24/20 15:19 103 H 69/40 05/24/20 15:17 100 H 68/39 05/24/20 15:15 99 H 63/36 99 05/24/20 15:13 92 H 67/39 05/24/20 15:11 95 H 68/39 05/24/20 15:10 94 H 99 05/24/20 15:09 88 65/35 05/24/20 15:07 91 H 71/37 05/24/20 15:06 96 H 65/39 05/24/20 15:05 97 H 64/34 100 05/24/20 15:03 94 H 62/36 05/24/20 15:02 94 H 93 05/24/20 15:01 95 H 61/39 05/24/20 15:00 94 H 97 05/24/20 14:59 96 H 73/41 05/24/20 14:57 99 H 79/43 05/24/20 14:56 99 H 93 05/24/20 14:55 98 H 73/40 98 05/24/20 14:53 151 H 102/58 05/24/20 14:51 113 H 89/51 05/24/20 14:50 113 H 99 05/24/20 14:49 111 H 100/59 05/24/20 14:47 115 H 78/44 05/24 14:45 91 H 95/56 98 10/20/19 14:43 120 H 103/58 10/20/19 14:41 115 H 115/60 10/20/19 14:40 115 H 84 10/20/19 14:39 127 H 122/77 10/20/19 14:37 105 H 96/68 10/20/19 14:35 122 H 105/71 100 10/20/19 14:33 127 H 103/70 10/20/19 14:30 119 H 128/68 99 10/20/19 14:25 115 H 96 10/20/19 14:20 98.1 F 10/20/19 14:19 111 H 115/72 97 10/20/19 14:16 110 H 94 10/20/19 14:14 119 H 97 10/20/19 14:09 107 H 97 10/20/19 13:58 129 H 196/114 10/20/19 13:00 113 H 137/92 10/20/19 12:51 123 H 174/112 Intake and Output 10/20/19 10/21/19 10/21/19 23:59 07:59 15:59 Intake Total 1000 500 Output Total 1500 2400 Balance -500 -1900 Intake: IV 1000 500 Lactated Ringers 1,000 ml 1000 500 @ 125 mls/hr IV DIRECT CINTHYA Rx#:[id number] Output: Urine 1500 2400 Indwelling Catheter 1500 2400 Other: Total, Output Amount 200 200 Estimated Blood Loss 200 - Exam Abdomen: Present: normal appearance, soft Vulva: both: normal Uterus: Present: normal, firm, fundal height at umbilicus Extremities: Present: normal Comments: small lochia - Labs Labs: Abnormal lab results 10/20/19 10/20/19 10/21/19 Range/Units 14:53 Unknown 02:28 WBC (4.5-11.0) K/mm3 Lymph % (Auto) (13.4-35.0) % Lymph # (1.2-5.4) K/mm3 Seg Neutrophils % (40.0-70.0) % Seg Neutrophils # (1.8-7.7) K/mm3 Sodium 135 L (137-145) mmol/L Chloride 96.4 L (98-107) mmol/L Magnesium 3.20 H 3.30 H (1.7-2.3) mg/dL Alkaline Phosphatase 143 H (35-129) units/L Lactate Dehydrogenase 202 H (91-180) units/L Albumin 3.8 L (3.9-5) g/dL 10/21/19 10/21/19 Range/Units 05:44 08:10 WBC 12.4 H (4.5-11.0) K/mm3 Lymph % (Auto) 7.9 L (13.4-35.0) % Lymph # 1.0 L (1.2-5.4) K/mm3 Seg Neutrophils % 85.4 H (40.0-70.0) % Seg Neutrophils # 10.6 H (1.8-7.7) K/mm3 Sodium (137-145) mmol/L Chloride (98-107) mmol/L Magnesium 3.20 H (1.7-2.3) mg/dL Alkaline Phosphatase (35-129) units/L Lactate Dehydrogenase (91-180) units/L Albumin (3.9-5) g/dL
[2019-10-21] MEDS: LACTATED RINGERS 1,000 ML IV SCH ×3 (12:20→12:22)
[2019-10-21 13:32] LABS: Hematocrit 34.8 % (30.3-42.9); Hemoglobin 11.8 gm/dl (10.1-14.3)
[2019-10-21] MEDS ORDERED: SODIUM CHLORIDE 0.9% 100 ML IVPB IV ONE (19:30)
[2019-10-21] MEDS ORDERED: SODIUM CHLORIDE 0.9% 1000 ML 1,000 ML IV SCH ×2 (19:30→22:30)
[2019-10-21] MEDS ORDERED: SODIUM CHLORIDE 0.9% 250ML 250 ML ONE (19:51)
[2019-10-21] MEDS ORDERED: SODIUM CHLORIDE 0.9% 100 ML IV ONE (21:00)
[2019-10-22] MEDS: HYDROcodone/ACETAMINOPHEN 5-325 MG TAB PO PRN (00:19)
[2019-10-22] MEDS: IBUPROFEN 600 MG TAB PO PRN (05:05)
[2019-10-22] MEDS: LACTATED RINGERS 1,000 ML IV SCH (05:07)
--- NOTE | 2019-10-22 09:34 | Consultation ---
History of Present Illness - Reason for Consult Consult date: 10/21/19 Management of BP Requesting physician: MARILIA CARRILLO - History of Present Illness Blood pressure has been fluctuating From High to low to high No history of Htn 34 year old presents to L&D with complaint of headache since awakening this morning. Patient states she got emotionally upset last night and noticed the headache after that. Patient denies visual disturbance, nausea or vomiting, abdominal pain, swelling, or vaginal bleeding. Patient reports contractions. She denies leaking of water. Patient reports active movement. Patient received care at [facility]. records are not available but was able to access records on computer. significant for the following: anemia (supplemented with iron), obesity, rubella nonimmune, left multicystic dysplastic kidney, mild pyelectasis/left hydronephrosis, UTI with proteus (treated). labs are as follows: AB+, antibody screen negative, pap smear negative, rubella nonimmune, RPR nonreactive, hepatitis B surface antigen negative, HIV negative, HSV 2 negative, hemoglobin electrophoresis AA, gonorrhea negative, chlamydia negative, trichomonas negative, GBS negative, 1 hour sugar test 77, AFP tetra screen negative. Past medical history significant for obesity, migraine, history of delivery, and vitamin D deficiency. Past History Past Medical History: other (obesity, migraine, vitamin D deficiency, history of PTD) Past Surgical History: no surgical history [facility] History: denies: abnormal PAP smear, chlamydia, gonorrhea, hepatitis B, hepatitis C, herpes, HIV, syphilis, trichomonas Family/Genetic History: diabetes, heart disease, hypertension, other (arthritis, hypercholesterolemia) Social history: lives with family, full code. denies: smoking, alcohol abuse, prescription drug abuse, IV drug use - Obstetrical History Expected Date of Delivery: 10/29/19 Actual Gestation: 38 Week(s) 5 Day(s) : 4 Para: 3 Hx # Term Pregnancies: 2 Number of Pregnancies: 1 Spontaneous Abortions: 0 Induced : 0 Number of Living Children: 3 Past History Past Medical History: No medical history Social history: lives with family, full code. denies: smoking, alcohol abuse, prescription drug abuse, IV drug use Family history: hypertension Medications and Allergies Allergies Allergy/AdvReac Type Severity Reaction Status Date / Time No Known Allergies Allergy Unverified 08/14/18 22:04 Active Meds: Active Medications Acetaminophen/Hydrocodone Bitart ([place] 5/325) 2 each PO Q6H PRN PRN Reason: Pain, Moderate (4-6) Last Admin: 10/22/19 00:19 Dose: 2 each Documented by: Ephedrine Sulfate (Ephedrine Sulfate) 10 mg IV Q2M PRN PRN Reason: Hypotension Hydralazine HCl (Apresoline) 5 mg IV Q30MIN PRN PRN Reason: Hypertension Oxytocin/Sodium Chloride (Pitocin/Ns 20 Unit/1000ml Drip) 20 units in 1,000 mls @ 125 mls/hr IV DIRECT CINTHYA Last Admin: 10/21/19 00:30 Dose: 125 mls/hr Documented by: Lactated Ringer's (Lactated Ringers) 1,000 mls @ 125 mls/hr IV DIRECT CINTHYA Last Admin: 10/22/19 05:07 Dose: 100 mls/hr Documented by: Fentanyl/Bupivacaine/Sodium Chlor (Fentanyl-Bupiv 2 Mcg/Ml-0.125%) 200 mcg in 100 mls @ 12 mls/hr EPIDURAL TITR CINTHYA; Protocol Last Infusion: 10/21/19 02:35 Dose: 0 mls/hr Documented by: Magnesium Sulfate (Magnesium Sulfate 40gm/1000ml) 40 gm in 1,000 mls @ 25 mls/hr IV DIRECT CINTHYA Last Admin: 10/20/19 21:18 Dose: 1 gm/hr, 25 mls/hr Documented by: Sodium Chloride (Nacl 0.9% 1000 Ml) 1,000 mls @ 75 mls/hr IV DIRECT CINTHYA Ibuprofen (Ibuprofen) 600 mg PO Q8H PRN PRN Reason: Pain, Mild (1-3) Last Admin: 10/22/19 05:05 Dose: 600 mg Documented by: Magnesium Hydroxide (Milk Of Magnesia) 30 ml PO HS PRN PRN Reason: Constipation Multi-Ingredient Ointment (Lansinoh) 1 applic TP PRN PRN PRN Reason: Sore Nipples Naloxone HCl (Naloxone) 0.2 mg IV Q5M PRN PRN Reason: Respiratory sedation Ondansetron HCl (Zofran) 4 mg IV Q8H PRN PRN Reason: Nausea And Vomiting Sodium Chloride (Sodium Chloride Flush Syringe 10 Ml) 10 ml IV PRN PRN PRN Reason: LINE FLUSH Witch Syl/Glycerin (Tucks Pad) 1 each TP PRN PRN PRN Reason: Hemorrhoid/cleansing/soothing Review of Systems All systems: negative Exam - Constitutional Vitals: Temp Pulse Resp BP Pulse Ox 96.5 F L 103 H 14 101/61 99 10/22/19 08:18 10/22/19 04:37 10/22/19 08:18 10/22/19 08:18 10/22/19 04:37 General appearance: Present: no acute distress, well-nourished - EENT Eyes: Present: PERRL ENT: hearing intact, clear oral mucosa - Neck Neck: Present: supple, normal ROM - Respiratory Respiratory effort: normal Respiratory: bilateral: CTA - Cardiovascular Heart rate: 78 Rhythm: regular Heart Sounds: Present: S1 & S2. Absent: rub, click - Extremities Extremities: no ischemia, pulses intact, pulses symmetrical, No edema Peripheral Pulses: within normal limits - Abdominal General gastrointestinal: Present: soft, non-tender, non-distended, normal bowel sounds Female genitourinary: Present: normal - Integumentary Integumentary: Present: clear, warm, dry - Musculoskeletal Musculoskeletal: gait normal, strength equal bilaterally - Psychiatric Psychiatric: appropriate mood/affect, intact judgment & insight - Neurologic Neurologic: CNII-XII intact, moves all extremities - Allied Health Allied health notes reviewed: nursing, case management Results - Labs CBC & Chem 7: 10/21/19 12:33 10/20/19 14:53 Labs: Abnormal lab results 10/21/19 Range/Units 14:26 Magnesium 3.50 H (1.7-2.3) mg/dL Assessment and Plan - Patient Problems (1) HTN (hypertension) Current Visit: Yes Status: Acute Plan to address problem: Patient has BP ranging from 119/82 to 196/114 to 98/68 High BP precipitated by Headaches Needs some iv fluids and trend the BP Will follow
--- NOTE | 2019-10-22 09:42 | Discharge Summary ---
Providers - Providers Date of Admission: 10/20/19 11:50 Date of discharge: 10/22/19 (1300) Attending physician: MARILIA CARRILLO 10/21/19 19:20 Consult to Physician [CONS] Stat Comment: Consulting Provider: TAMERA FLOREZ Physician Instructions: Reason For Exam: Fluctuating blood pressures/tachycardia unkown Primary care physician: MARILIA CARRILLO Hospitalization Reason for admission: active labor Delivery: Episiotomy: none Laceration: none Other procedures: none complications: none Discharge diagnosis: IUP at term delivered [place] baby: male Hospital course: See admission H & P; OB delivery summary and PP progress notes Condition at discharge: Good Disposition: DC-01 TO HOME OR SELFCARE - Discharge Diagnoses (1) Status post normal vaginal delivery Status: Acute Plan - Provider Discharge Summary Activity: routine, no sex for 6 weeks, no heavy lifting 4 weeks, no strenuous exercise Diet: routine Instructions: routine Additional instructions: [] Smoking cessation referral if applicable(refer to patient education folder for contact #) [] Refer to [facility] Booklet Call your doctor immediately for: * Fever > 100.5 * Heavy vaginal bleeding ( >1 pad per hour) * Severe persistent headache * Shortness of breath * Reddened, hot, painful area to leg or breast * Drainage or odor from incision. * Keep incision clean and dry at all times and follow doctor's instructions regarding bathing/showering - Follow up plan Follow up: MARILIA CARRILLO MD [Primary Care Provider] - 6 Weeks
[2019-10-22 12:57] VITALS: BP 119/84
== END 2019-10-22 16:34 | disposition home or self-care (01) | DRG 807 ==
LOC: TRG 06:54 → APU 07:27 → LD 11:23 → TRG 11:49 → LD 11:50 → OB 10-21 23:27
PROVIDERS: ADMIT Obstetrics & Gynecology; ATTEND Obstetrics & Gynecology
PROC: 10E0XZZ Delivery of Products of Conception, External Approach (ICD-10-PCS; principal; 2019-10-20)
PROC: 3E0R3BZ Introduction of Anesthetic Agent into Spinal Canal, Percutaneous Approach (ICD-10-PCS; 2019-10-20)
PROC: 00HU33Z Insertion of Infusion Device into Spinal Canal, Percutaneous Approach (ICD-10-PCS; 2019-10-20)
DX: O14.14 Severe pre-eclampsia complicating childbirth (principal); Z37.0 Single live birth; O76 Abnormality in fetal heart rate and rhythm complicating labor and delivery; O69.81X0 Labor and delivery complicated by cord around neck, without compression, not applicable or unspecified; O16.4 Unspecified maternal hypertension, complicating childbirth; O99.214 Obesity complicating childbirth; E66.9 Obesity, unspecified; O99.62 Diseases of the digestive system complicating childbirth; O99.02 Anemia complicating childbirth; D64.9 Anemia, unspecified; F43.10 Post-traumatic stress disorder, unspecified; I95.81 Postprocedural hypotension; O99.344 Other mental disorders complicating childbirth; K21.9 Gastro-esophageal reflux disease without esophagitis; Z3A.38 38 weeks gestation of pregnancy; Z83.3 Family history of diabetes mellitus; Z82.49 Family history of ischemic heart disease and other diseases of the circulatory system; Z82.61 Family history of arthritis; Z83.42 Family history of familial hypercholesterolemia; Z87.440 Personal history of urinary (tract) infections
CPT/HCPCS: 36415; 59025; 76815; 80053; 81001; 83615; 83735; 84550; 85014; 85018; 85025; 85027; 86850; 86900; 86901; 87086; G0378; J0360; J2590; J3105; J3475; J3490; J7050; J7120